=== PATIENT | female | born 1995 | race Caucasian/White ===

== ENCOUNTER 2018-08-01 14:32 | Emergency (ER) | payer OTHER ==
[2018-08-01 15:28] LABS: Absolute Lymphocytes (CBC) 1.5 K/uL (0.7-4.9); Absolute Monocytes 0.3 K/uL (0.1-1.3); Absolute Neutrophil 3.9 K/uL (1.8-8.0); Basophils % 0.7 % (0-1.3); Eosinophils % 1.7 % (0-4.4); Hematocrit 43.9 % (36.0-45.0); Lymphocytes % 25.1 % (15.3-44.8); MPV 9.6 fL (7.6-11.3); Monocytes % 5.6 % (3.3-12.3); RBC Red Blood Cell Count 4.81 M/uL (3.86-4.86)
[2018-08-01 15:31] LABS: Urine Blood NEGATIVE (NEG); Urine Glucose NEGATIVE (NEG); Urine Protein 1+ (NEG); Urine pH 8.5 (5.0-7.0)
[2018-08-01 15:40] LABS: BUN Blood Urea Nitrogen 9 mg/dL (7-18); Bicarbonate 25 mmol/L (21-32); Glucose Level 90 mg/dL (74-106); Potassium 4.5 mmol/L (3.5-5.1); Sodium Level 139 mmol/L (136-145)
--- NOTE | 2018-08-01 18:08 | RAD REPORT ---
EXAM DESCRIPTION: CTAbdomen Pelvis W Contrast - 08/01/2018 5:30 pm CLINICAL HISTORY: Abdominal pain. ABD PAIN COMPARISON: <Comparisons> TECHNIQUE: Biphasic CT imaging of the abdomen and pelvis was performed with 100 ml non-ionic IV cont rast. All CT scans are performed using dose optimization technique as appropriate and may include automated exposure control or mA/KV adjustment according to patient size. FINDINGS: The lung bases are clear. The liver, spleen, pancreas, adrenal glands and kidneys are within normal limits. No bowel obstruction, free air, intra-abdominal free fluid or abscess. The appendix is normal. No e vidence of significant lymphadenopathy. Moderate free fluid is seen in the pelvis with a mildly incre ased density to the fluid, suggesting recent hemorrhagic cyst rupture. No suspicious bony findings. IMPRESSION: Recent hemorrhagic cyst rupture is a possibility.
--- NOTE | 2018-08-01 18:11 | EDPHYS ---
Physician Documentation [facility] Name: Yeimi Santillan Age: 22 yrs Sex: Female : 1995 Arrival Date: 08/01/2018 Time: 14:38 Bed 26 Private MD: ED Physician Sagar Craven HPI: 08/01 15:51 This 22 yrs old Female presents to ER via Ambulatory with complaints of kb Abdominal Pain. 15:51 The patient presents with abdominal pain in the lower abdomen. Onset: The kb symptoms/episode began/occurred 1.5 hour(s) ago. The symptoms do not radiate. Associated signs and symptoms: Pertinent positives: diarrhea, nausea. The symptoms are described as constant. Modifying factors: The symptoms are alleviated by nothing, the symptoms are aggravated by nothing. Severity of pain: At its worst the pain was moderate in the emergency department the pain is unchanged. The patient has not experienced similar symptoms in the past. The patient has not recently seen a physician. 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 - Social history:: Smoking status: Patient uses tobacco products, smokes one-half pack cigarettes per day. - Ebola Screening: : No symptoms or risks identified at this time. ROS: 15:51 Constitutional: Negative for fever, chills, and weight loss, Cardiovascular: Negative kb for chest pain, palpitations, and edema, Respiratory: Negative for shortness of breath, cough, wheezing, and pleuritic chest pain, Back: Negative for injury and pain, : Negative for injury, bleeding, discharge, and swelling, MS/Extremity: Negative for injury and deformity, Skin: Negative for injury, rash, and discoloration, Neuro: Negative for headache, weakness, numbness, tingling, and seizure. 15:51 Abdomen/GI: Positive for abdominal pain, nausea, diarrhea, Negative for constipation, abdominal cramps, abdominal distension, anorexia. Exam: 15:50 Constitutional: This is a well developed, well nourished patient who is awake, alert, kb and in no acute distress. Head/Face: Normocephalic, atraumatic. Chest/axilla: Normal chest wall appearance and motion. Nontender with no deformity. No lesions are appreciated. Cardiovascular: Regular rate and rhythm with a normal S1 and S2. No gallops, murmurs, or rubs. Normal PMI, no JVD. No pulse deficits. Respiratory: Lungs have equal breath sounds bilaterally, clear to auscultation and percussion. No rales, rhonchi or wheezes noted. No increased work of breathing, no retractions or nasal flaring. Back: No spinal tenderness. No costovertebral tenderness. Full range of motion. Skin: Warm, dry with normal turgor. Normal color with no rashes, no lesions, and no evidence of cellulitis. MS/ Extremity: Pulses equal, no cyanosis. Neurovascular intact. Full, normal range of motion. Neuro: Awake and alert, GCS 15, oriented to person, place, time, and situation. Cranial nerves II-XII grossly intact. Motor strength 5/5 in all extremities. Sensory grossly intact. Cerebellar exam normal. Normal gait. 15:50 Abdomen/GI: Inspection: abdomen appears normal, Bowel sounds: normal, Palpation: soft, in all quadrants, moderate abdominal tenderness, in the right lower quadrant. Vital Signs: 14:47 BP 131 / 69; Pulse 95; Resp 16; Temp 98.9; Pulse Ox 100% on R/A; Weight 63.5 kg; Height hb 5 ft. 9 in. (175.26 cm); Pain 7/10; 16:00 BP 111 / 65; Pulse 68; Resp 17; Temp 98.5(O); Pulse Ox 100% on R/A; ca1 16:49 BP 103 / 73; Pulse 64; Resp 17 S; Temp 98.3(O); Pulse Ox 99% on R/A; ca1 17:34 BP 117 / 67; Pulse 78; Resp 17 S; Temp 98.5(O); Pulse Ox 99% on R/A; ca1 14:47 Body Mass Index 20.67 (63.50 kg, 175.26 cm) hb MDM: 14:53 Patient medically screened. kb 15:50 Data reviewed: vital signs, nurses notes. Data interpreted: Pulse oximetry: on room air kb is 100 %. Interpretation: normal. 18:10 Counseling: I had a detailed discussion with the patient and/or guardian regarding: the kb historical points, exam findings, and any diagnostic results supporting the discharge/admit diagnosis, lab results, radiology results, the need for outpatient follow up, an OB/Gyne specialist, to return to the emergency department if symptoms worsen or persist or if there are any questions or concerns that arise at home. 08/01 15:10 Order name: Basic Metabolic Panel; Complete Time: 15:45 kb 08/01 15:10 Order name: CBC with Diff; Complete Time: 15:34 kb 08/01 15:10 Order name: IV Saline Lock; Complete Time: 15:23 kb 08/01 15:10 Order name: CT Abd/Pelvis - W/Contrast; Complete Time: 18:10 kb 08/01 15:12 Order name: Urine Dipstick--Ancillary (enter results); Complete Time: 15:34 em1 08/01 15:12 Order name: Urine --Ancillary (enter results); Complete Time: 15:34 em1 08/01 15:10 Order name: Labs collected and sent; Complete Time: 15:23 kb 08/01 15:13 Order name: Urine Dipstick-Ancillary (obtain specimen); Complete Time: 15:13 em1 08/01 15:13 Order name: Urine Test (obtain specimen); Complete Time: 15:13 em1 Administered Medications: No medications were administered Disposition: 18:50 Co-signature as Attending Physician, Sagar Craven MD. rn Disposition: 08/01/18 18:11 Discharged to Home. Impression: Other ovarian cysts. - Condition is Stable. - Discharge Instructions: Ovarian Cyst, [id number]. - Prescriptions for Diclofenac Sodium 75 mg Oral Tablet, Delayed Release (E.C.) - take 1 tablet by ORAL route 2 times per day As needed; 30 tablet. - Medication Reconciliation Form, Thank You Letter, Antibiotic Education, Prescription Opioid Use form. - Work release form (08/01/18 18:24). ss - Follow up: Emergency Department; When: As needed; Reason: Worsening of condition. Follow up: Private Physician; When: 2 - 3 days; Reason: Recheck today's complaints, Continuance of care, Re-evaluation by your physician. Signatures: Dispatcher [employer] Radha Cortes FNP-C FNP-Ckb Sagar Craven MD MD rn Chris, Erasmo em1 Gabriela Andersen, FLORENTINO RN Emelyn Elizalde RN RN ca1 January Giron RN ss Corrections: (The following items were deleted from the chart) 17:56 17:54 Transition of care: After a detail discussion of the patient's case, care is kb transferred to Dago Kelley NP 18:23 18:11 08/01/2018 18:11 Discharged to Home. Impression: Other ovarian cysts. Condition ca1 is Stable. Forms are Medication Reconciliation Form, Thank You Letter, Antibiotic Education, Prescription Opioid Use. Follow up: Emergency Department; When: As needed; Reason: Worsening of condition. Follow up: Private Physician; When: 2 - 3 days; Reason: Recheck today's complaints, Continuance of care, Re-evaluation by your physician. kb
--- NOTE | 2018-08-01 18:11 | ER ---
Nurse's Notes [facility] Name: Yeimi Santillan Age: 22 yrs Sex: Female : 1995 Arrival Date: 08/01/2018 Time: 14:38 Bed 26 Private MD: Diagnosis: Other ovarian cysts Presentation: 08/01 14:46 Presenting complaint: Lower abdominal pain, worse on right side, and N/V/D x 1 hr. hb Transition of care: patient was not received from another setting of care. Onset of symptoms was August 01, 2018. Risk Assessment: Do you want to hurt yourself or someone else? Patient reports no desire to harm self or others. Care prior to arrival: None. 14:46 Method Of Arrival: Ambulatory hb 14:46 Acuity: FERNANDEZ 3 hb 15:00 Initial Sepsis Screen: Does the patient meet any 2 criteria? No. Patient's initial ca1 sepsis screen is negative. Does the patient have a suspected source of infection? Yes:. MICA MINER: 14:47 LMP 07/12/2018 hb Historical: - Allergies: 14:48 No Known Allergies; hb - Home Meds: 14:48 None [Active]; hb - PMHx: 14:48 None; hb - PSHx: 14:48 None; hb - Immunization history:: Adult Immunizations up to date. - Social history:: Smoking status: Patient uses tobacco products, smokes one-half pack cigarettes per day. - Ebola Screening: : No symptoms or risks identified at this time. Screenin:57 Abuse screen: Denies threats or abuse. Denies injuries from another. Nutritional ca1 screening: No deficits noted. Tuberculosis screening: No symptoms or risk factors identified. Fall Risk None identified. Assessment: 14:57 General: Appears in no apparent distress. comfortable, Behavior is calm, cooperative, ca1 appropriate for age. Pain: Complains of pain in right lower quadrant Pain radiates to lumbar area Pain currently is 6 out of 10 on a pain scale. at worst was 10 out of 10 on a pain scale. Quality of pain is described as stabbing, Pain began 2 hours ago. Is intermittent, Aggravated by repositioning. Neuro: Level of Consciousness is awake, alert, obeys commands, Oriented to person, place, time, situation. Cardiovascular: Heart tones S1 S2 present Capillary refill < 3 seconds Patient's skin is warm and dry. Respiratory: Airway is patent Respiratory effort is even, unlabored, Respiratory pattern is regular, symmetrical, Breath sounds are clear bilaterally. GI: Abdomen is flat, non-distended, Bowel sounds present X 4 quads. Abd is soft X 4 quads Abdomen is tender to palpation in right lower quadrant Reports diarrhea, nausea. : No deficits noted. No signs and/or symptoms were reported regarding the genitourinary system. EENT: No deficits noted. No signs and/or symptoms were reported regarding the EENT system. Derm: Skin is intact, is healthy with good turgor, Skin is pink, warm \T\ dry. Musculoskeletal: Circulation, motion, and sensation intact. Capillary refill < 3 seconds, Range of motion: intact in all extremities. 15:52 Reassessment: completed drinking oral contrast. ss 16:00 Reassessment: Patient appears in no apparent distress at this time. Patient and/or ca1 family updated on plan of care and expected duration. Pain level reassessed. Patient is alert, oriented x 3, equal unlabored respirations, skin warm/dry/pink. 16:49 Reassessment: Patient appears in no apparent distress at this time. Patient is alert, ca1 oriented x 3, equal unlabored respirations, skin warm/dry/pink. Pending CT scan with contrast. 17:26 Reassessment: Pt to CT via wheelchair. ss 17:34 Reassessment: Patient appears in no apparent distress at this time. Patient and/or ca1 family updated on plan of care and expected duration. Pain level reassessed. Patient is alert, oriented x 3, equal unlabored respirations, skin warm/dry/pink. PT back from CT scan. Vital Signs: 14:47 BP 131 / 69; Pulse 95; Resp 16; Temp 98.9; Pulse Ox 100% on R/A; Weight 63.5 kg; Height hb 5 ft. 9 in. (175.26 cm); Pain 7/10; 16:00 BP 111 / 65; Pulse 68; Resp 17; Temp 98.5(O); Pulse Ox 100% on R/A; ca1 16:49 BP 103 / 73; Pulse 64; Resp 17 S; Temp 98.3(O); Pulse Ox 99% on R/A; ca1 17:34 BP 117 / 67; Pulse 78; Resp 17 S; Temp 98.5(O); Pulse Ox 99% on R/A; ca1 14:47 Body Mass Index 20.67 (63.50 kg, 175.26 cm) hb ED Course: 14:38 Patient arrived in ED. mr 14:47 Triage completed. hb 14:48 Arm band placed on. hb 14:51 Emelyn Elizalde, RN is Primary Nurse. ca1 14:52 [facility]C [facility]. kb 14:52 Sagar Craven MD is Attending Physician. kb 14:57 Patient has correct armband on for positive identification. Placed in gown. Bed in low ca1 position. Call light in reach. Side rails up X 1. Pulse ox on. NIBP on. Warm blanket given. 14:57 No provider procedures requiring assistance completed. ca1 15:31 Inserted saline lock: 20 gauge in right antecubital area, using aseptic technique. mg2 Blood collected. 17:31 CT Abd/Pelvis - W/Contrast In Process Unspecified. EDMS 18:22 IV discontinued, intact, bleeding controlled, No redness/swelling at site. Pressure ca1 dressing applied. Administered Medications: No medications were administered Outcome: 18:11 Discharge ordered by . kb 18:22 Discharged to home ambulatory. ca1 18:22 Discharged to home ambulatory, with significant other. 18:22 Condition: stable 18:22 Instructed on discharge instructions, follow up and referral plans. medication usage. 18:23 Patient left the ED. ca1 Signatures: Dispatcher [employer] EDMS Radha Pop FNP-C FNP-Ckb Corie Potter mr January Giron RN RN Gabriela Andersen RN RN Arun Ordonez RN RN mg2 Emelyn Elizalde RN RN ca1
== END 2018-08-01 18:23 | disposition home or self-care (01) ==
LOC: ER 14:32
DX: N83.209 Unspecified ovarian cyst, unspecified side (principal); F17.210 Nicotine dependence, cigarettes, uncomplicated
CPT/HCPCS: 36415; 74177; 80048; 81003; 81025; 85025; 99284; Q9967

== ENCOUNTER 2018-09-12 22:46 | Emergency (ER) | payer OTHER ==
--- OUTSIDE RECORDS SUMMARY | 2018-09-12 22:49 | XMS REPORT ---
:1995 [facility] Address [address] [place] [address] Dr. Blake [address] [place] [id number] Care Team Providers Name Role Phone Unavailable Unavailable Unavailable Problems This patient has no known problems. Allergies, Adverse Reactions, Alerts This patient has no known allergies or adverse reactions. Medications This patient has no known medications.
[2018-09-12] MEDS ORDERED: FAMOTIDINE 20 MG/2 ML VIAL IV ONE (23:41)
[2018-09-12] MEDS ORDERED: ONDANSETRON 4 MG/2 ML VIAL ONE (23:41)
[2018-09-12] MEDS ORDERED: NA CHLORIDE 0.9% 1,000 ML ONE (23:41)
[2018-09-13 00:24] LABS: Urine Blood NEGATIVE (NEG); Urine Glucose NEGATIVE (NEG); Urine Protein 1+ (NEG); Urine Specific Gravity >1.030 (1.005-1.030); Urine pH 5.5 (5.0-7.0)
[2018-09-13 00:43] LABS: Absolute Lymphocytes (CBC) 0.5 K/uL (0.7-4.9); Basophils % 0.2 % (0-1.3); Hematocrit 48.4 % (36.0-45.0); Lymphocytes % 9.2 % (15.3-44.8); MPV 9.2 fL (7.6-11.3); RBC Red Blood Cell Count 5.35 M/uL (3.86-4.86)
[2018-09-13 01:03] LABS: Albumin 4.5 g/dL (3.4-5.0); Bilirubin Direct 0.2 mg/dL (0-0.2); Bilirubin Total 0.8 mg/dL (0.2-1.0); Potassium 3.6 mmol/L (3.5-5.1); Protein, Total 8.2 g/dL (6.4-8.2)
[2018-09-13 01:21] LABS: Blood Morphology Comment NOT SEEN (NOT SEEN); Platelet Estimate ADEQ
--- NOTE | 2018-09-13 01:47 | EDPHYS ---
Physician Documentation [facility] Name: Yeimi Santillan Age: 23 yrs Sex: Female : 1995 Arrival Date: 09/12/2018 Time: 22:55 Bed 25 Private MD: ED Physician Dinesh Griffin HPI: 09/12 23:20 This 23 yrs old Female presents to ER via Ambulatory with complaints of cp Vomiting, Low Back Pain. 23:20 The patient presents to the emergency department with nausea, that is moderate, cp vomiting, that is intermittent, diarrhea, that is continuous. 23:20 Onset: The symptoms/episode began/occurred this morning. Possible causes: sick cp contacts, by family. Associated signs and symptoms: Pertinent positives: low back pain, Pertinent negatives: abdominal pain, constipation, fever. Severity of symptoms: in the emergency department the symptoms are unchanged despite home interventions. 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 - Social history:: Smoking status: Patient uses tobacco products, 2-3 cigs a day. - Ebola Screening: : Patient negative for fever greater than or equal to 101.5 degrees Fahrenheit, and additional compatible Ebola Virus Disease symptoms Patient denies exposure to infectious person Patient denies travel to an Ebola-affected area in the 21 days before illness onset No symptoms or risks identified at this time. ROS: 23:30 Constitutional: Positive for poor PO intake, Negative for body aches, chills, fever. cp 23:30 Eyes: Negative for injury, pain, redness, and discharge. cp 23:30 ENT: Negative for drainage from ear(s), ear pain, sore throat, difficulty swallowing, difficulty handling secretions. 23:30 Cardiovascular: Negative for chest pain, palpitations. 23:30 Respiratory: Negative for cough, shortness of breath, wheezing. 23:30 Abdomen/GI: Positive for nausea, vomiting, and diarrhea, Negative for abdominal pain, constipation, hematemesis, black/tarry stool, rectal bleeding. 23:30 Back: Positive for pain at rest, pain with movement, Negative for injury or acute deformity. 23:30 : Negative for urinary symptoms. 23:30 Skin: Negative for cellulitis, rash. 23:30 Neuro: Negative for altered mental status, headache, weakness. 23:30 All other systems are negative. Exam: 23:35 Constitutional: The patient appears in no acute distress, alert, awake, non-toxic, well cp developed, well nourished. 23:35 Head/Face: Normocephalic, atraumatic. cp 23:35 Eyes: Periorbital structures: appear normal, Conjunctiva: normal, no exudate, no injection, Sclera: no appreciated abnormality, Lids and lashes: appear normal, bilaterally. 23:35 ENT: External ear(s): are unremarkable, Nose: is normal, Mouth: Lips: moist, Oral mucosa: pink and intact, moist, Posterior pharynx: is normal, airway is patent, no erythema, no exudate. 23:35 Chest/axilla: Inspection: normal, Palpation: is normal, no crepitus, no tenderness. 23:35 Cardiovascular: Rate: tachycardic, Rhythm: regular. 23:35 Respiratory: the patient does not display signs of respiratory distress, Respirations: normal, no use of accessory muscles, no retractions, no splinting, no tachypnea, Breath sounds: are clear throughout, no decreased breath sounds, no stridor, no wheezing. 23:35 Abdomen/GI: Inspection: abdomen appears normal, Bowel sounds: active, all quadrants, Palpation: soft, in all quadrants, mild abdominal tenderness, in all quadrants, rebound tenderness, is not appreciated, voluntary guarding, is not appreciated, involuntary guarding, is not appreciated. 23:35 Back: pain, that is mild, of the low back area, ROM is normal. Vital Signs: 23:10 BP 103 / 62; Pulse 104; Resp 18; Temp 98.1(O); Pulse Ox 98% on R/A; Weight 70.31 kg ca1 (R); Height 5 ft. 9 in. (175.26 cm); Pain 4/10; 0704 00:09 BP 107 / 82; Pulse 91; Resp 18 S; Pulse Ox 100% on R/A; ca1 00:42 BP 99 / 64; Pulse 84; Resp 16; Pulse Ox 100% ; rv 01:38 BP 109 / 72; Pulse 78; Resp 17; Temp 98; Pulse Ox 100% ; rv 09/12 23:10 Body Mass Index 22.89 (70.31 kg, 175.26 cm) ca1 MDM: 09/12 23:11 Patient medically screened. cp 09/13 01:00 Differential diagnosis: gastritis, cholecystitis, appendicitis, viral gastroenteritis, cp gastroenteritis. 01:45 Data reviewed: vital signs, nurses notes, lab test result(s). cp 01:45 Counseling: I had a detailed discussion with the patient and/or guardian regarding: the cp historical points, exam findings, and any diagnostic results supporting the discharge/admit diagnosis, lab results, to return to the emergency department if symptoms worsen or persist or if there are any questions or concerns that arise at home. 01:45 Response to treatment: the patient's symptoms have markedly improved after treatment, cp VSS. Nausea markedly improved. No vomiting observed while in ED. Will discharge to home for continued monitoring. 09/12 23:17 Order name: Basic Metabolic Panel; Complete Time: 01:18 cp 09/13 01:18 Interpretation: Normal except: GLUC 110; GFR 89. cp 09/12 23:17 Order name: CBC with Diff; Complete Time: 01:45 cp 09/13 01:18 Interpretation: Normal except: RBC 5.35; HGB 16.3; HCT 48.4; DUSTY% 86.6; LYM% 9.2; LYMA cp 0.5. 09/12 23:17 Order name: Creatinine for Radiology; Complete Time: 01:18 cp 09/12 23:17 Order name: Hepatic Function; Complete Time: 01:18 cp 09/12 23:17 Order name: Lipase; Complete Time: 01:18 cp 09/12 23:56 Order name: Urine Dipstick--Ancillary (enter results); Complete Time: 01:18 mw2 09/12 23:17 Order name: IV Saline Lock; Complete Time: 00:02 cp 09/12 23:17 Order name: Labs collected and sent; Complete Time: 00:02 cp 09/12 23:17 Order name: Urine Dipstick-Ancillary (obtain specimen); Complete Time: 23:52 cp 09/12 23:56 Order name: Urine --Ancillary (enter results); Complete Time: 01:18 mw2 09/13 00:51 Order name: Manual Differential; Complete Time: 01:45 EDMS 09/13 01:45 Interpretation: Normal except: BANDS [F] 2; LYM 14. cp 09/12 23:17 Order name: Urine Test (obtain specimen); Complete Time: 23:52 cp 09/13 01:18 Order name: PO challenge; Complete Time: 01:36 cp Administered Medications: 00:01 Drug: NS 0.9% 1000 ml Route: IV; Rate: 1 bolus; Site: left antecubital; ca1 01:31 Follow up: IV Status: Completed infusion; IV Intake: 1000ml rv 00:02 Drug: Zofran 4 mg Route: IVP; Site: left antecubital; ca1 01:31 Follow up: Response: Marked relief of symptoms rv 00:06 Drug: Pepcid 20 mg Route: IVP; Site: left antecubital; ca1 01:31 Follow up: Response: Marked relief of symptoms rv Disposition: 09/13/18 01:46 Discharged to Home. Impression: Nausea and vomiting, Diarrhea, unspecified. - Condition is Stable. - Discharge Instructions: Dehydration, Adult, Diarrhea, Adult, Nausea and Vomiting, Adult. - Prescriptions for Zofran 4 mg Oral Tablet - take 1 tablet by ORAL route every 12 hours As needed; 20 tablet. - Medication Reconciliation Form, Thank You Letter, Antibiotic Education, Prescription Opioid Use form. - Work release form (09/13/18 01:58). mw2 - Follow up: Private Physician; When: 1 - 2 days; Reason: Worsening of condition. - Problem is new. - Symptoms have improved. Addendum: 09/17/2018 18:16 Co-signature as Attending Physician, Dinesh Griffin MD. g s Signatures: Dispatcher [employer] EDMS [place] PA PA cp Starr, Gregory, MD MD Julito Gonzales RN RN rv Emelyn Elizalde RN RN [facility] Lakshmi Cartwright mw2 Corrections: (The following items were deleted from the chart) 09/13 01:57 01:46 09/13/2018 01:46 Discharged to Home. Impression: Nausea and vomiting; Diarrhea, rv unspecified. Condition is Stable. Forms are Medication Reconciliation Form, Thank You Letter, Antibiotic Education, Prescription Opioid Use. Follow up: Private Physician; When: 1 - 2 days; Reason: Worsening of condition. Problem is new. Symptoms have improved. cp
--- NOTE | 2018-09-13 01:47 | ER ---
Nurse's Notes [facility] Name: Yeimi Santillan Age: 23 yrs Sex: Female : 1995 Arrival Date: 09/12/2018 Time: 22:55 Bed 25 Private MD: Diagnosis: Nausea and vomiting;Diarrhea, unspecified Presentation: 09/12 23:05 Presenting complaint: Patient states: she has vomiting all day and cannot keep fluids ca1 down. Pt also has diarrhea that is watery, few hours after she started having low back pains. Denies fever. Transition of care: patient was not received from another setting of care. Onset of symptoms was September 12, 2018. Risk Assessment: Do you want to hurt yourself or someone else? Patient reports no desire to harm self or others. Initial Sepsis Screen: Does the patient meet any 2 criteria? No. Patient's initial sepsis screen is negative. Does the patient have a suspected source of infection? No. Patient's initial sepsis screen is negative. Care prior to arrival: None. 23:05 Method Of Arrival: Ambulatory ca1 23:05 Acuity: FERNANDEZ 3 ca1 Triage Assessment: 23:10 General: Appears in no apparent distress. comfortable, Behavior is calm, cooperative, ca1 appropriate for age. Pain: Complains of pain in low back area Pain does not radiate. Pain currently is 4 out of 10 on a pain scale. at worst was 7 out of 10 on a pain scale. Pain began this morning. GI: Reports diarrhea, nausea, vomiting, since this morning. HOSPICE MASSAGE THERAPIST: 23:00 LMP N/A - Depo-provera ca1 Historical: - Allergies: 23:10 No Known Allergies; ca1 - Home Meds: 23:10 Flouxetine [Active]; Ibuprofen Oral [Active]; ca1 - PMHx: 23:10 Premenstrual Dysphoric Disorder; ca1 - PSHx: 23:10 None; ca1 - Immunization history:: Adult Immunizations not up to date, Flu vaccine is not up to date. - Social history:: Smoking status: Patient uses tobacco products, 2-3 cigs a day. - Ebola Screening: : Patient negative for fever greater than or equal to 101.5 degrees Fahrenheit, and additional compatible Ebola Virus Disease symptoms Patient denies exposure to infectious person Patient denies travel to an Ebola-affected area in the 21 days before illness onset No symptoms or risks identified at this time. Screenin:00 Abuse screen: Denies threats or abuse. Denies injuries from another. Nutritional ca1 screening: No deficits noted. Tuberculosis screening: No symptoms or risk factors identified. Fall Risk IV access (20 points). Assessment: 23:00 General: Appears in no apparent distress. comfortable, Behavior is calm, cooperative, ca1 appropriate for age. Pain: Complains of pain in low back area Pain does not radiate. Pain currently is 4 out of 10 on a pain scale. at worst was 7 out of 10 on a pain scale. Pain began 1 day ago. Neuro: Level of Consciousness is awake, alert, obeys commands, Oriented to person, place, time, situation. Cardiovascular: Heart tones S1 S2 present Capillary refill < 3 seconds Patient's skin is warm and dry. Respiratory: Airway is patent Respiratory effort is even, unlabored, Respiratory pattern is regular, symmetrical, Breath sounds are clear bilaterally. GI: Abdomen is flat, non-distended, Bowel sounds present X 4 quads. Abd is soft and non tender X 4 quads. Reports diarrhea, nausea, vomiting, since this morning. : No deficits noted. No signs and/or symptoms were reported regarding the genitourinary system. EENT: No deficits noted. No signs and/or symptoms were reported regarding the EENT system. Derm: Skin is intact, is healthy with good turgor, Skin is pink, warm \T\ dry. Musculoskeletal: Circulation, motion, and sensation intact. Capillary refill < 3 seconds, Range of motion: intact in all extremities. 09/13 00:09 Reassessment: Patient appears in no apparent distress at this time. Patient and/or ca1 family updated on plan of care and expected duration. Pain level reassessed. Patient is alert, oriented x 3, equal unlabored respirations, skin warm/dry/pink. 01:37 Reassessment: Patient appears in no apparent distress at this time. Patient and/or rv family updated on plan of care and expected duration. Pain level reassessed. Patient is alert, oriented x 3, equal unlabored respirations, skin warm/dry/pink. Patient denies pain at this time. Patient states feeling better. Patient states symptoms have improved. Vital Signs: 09/12 23:10 BP 103 / 62; Pulse 104; Resp 18; Temp 98.1(O); Pulse Ox 98% on R/A; Weight 70.31 kg ca1 (R); Height 5 ft. 9 in. (175.26 cm); Pain 4/10; 09/13 00:09 BP 107 / 82; Pulse 91; Resp 18 S; Pulse Ox 100% on R/A; ca1 00:42 BP 99 / 64; Pulse 84; Resp 16; Pulse Ox 100% ; rv 01:38 BP 109 / 72; Pulse 78; Resp 17; Temp 98; Pulse Ox 100% ; rv 07 23:10 Body Mass Index 22.89 (70.31 kg, 175.26 cm) ca1 ED Course: 09/12 22:55 Patient arrived in ED. es 22:59 Emelyn Elizalde, FLOR[place]INO is Primary Nurse. ca1 23:03 [place] PA is PHCP. cp 23:03 Dinesh rGiffin MD is Attending Physician. cp 23:07 Triage completed. ca1 23:10 Arm band placed on right wrist. ca1 23:11 Patient has correct armband on for positive identification. Placed in gown. Bed in low ca1 position. Call light in reach. Side rails up X 1. Pulse ox on. NIBP on. Warm blanket given. 23:40 Missed attempt(s): 20 gauge in right antecubital area. Bleeding controlled, band aid ca1 applied, catheter tip intact. 09/13 00:02 No provider procedures requiring assistance completed. Inserted saline lock: 22 gauge ca1 in left antecubital area, using aseptic technique. ,using aseptic technique. by Julito Gonzales RN Blood collected. 01:57 IV discontinued, intact, bleeding controlled, No redness/swelling at site. Pressure rv dressing applied. Administered Medications: 00:01 Drug: NS 0.9% 1000 ml Route: IV; Rate: 1 bolus; Site: left antecubital; ca1 01:31 Follow up: IV Status: Completed infusion; IV Intake: 1000ml rv 00:02 Drug: Zofran 4 mg Route: IVP; Site: left antecubital; ca1 :31 Follow up: Response: Marked relief of symptoms rv 00:06 Drug: Pepcid 20 mg Route: IVP; Site: left antecubital; ca1 01:31 Follow up: Response: Marked relief of symptoms rv Intake: 01:31 IV: 1000ml; Total: 1000ml. rv Outcome: 01:46 Discharge ordered by . cp 01:57 Discharged to home ambulatory. rv 01:57 Condition: improved 01:57 Discharge instructions given to patient, family, Instructed on discharge instructions, follow up and referral plans. medication usage, Demonstrated understanding of instructions, follow-up care, medications, Prescriptions given X 1. 01:57 Patient left the ED. rv Signatures: Juliet Austin Corey PA PA Julito Thomson RN RN rv Emelyn Elizalde RN RN ca1 Corrections: (The following items were deleted from the chart) 01:38 01:36 BP 120 / 75; Pulse 83bpm; Resp 17bpm; Pulse Ox 100%; Temp 98F; rv rv
== END 2018-09-13 01:57 | disposition home or self-care (01) ==
LOC: ER 22:46
DX: R19.7 Diarrhea, unspecified (principal); Z72.0 Tobacco use
CPT/HCPCS: 36415; 80048; 80076; 81003; 81025; 83690; 85025; 96361; 96374; 96375; 99284; J2405; J7030